=== PATIENT | female | born 1945 | race Caucasian/White ===

== ENCOUNTER 2017-06-27 04:02 | Inpatient (IN) | payer OTHER ==
[~2017-06-27] VITALS: Ht 163.8 cm; Wt 70.3 kg
[~2017-06-27 04:02] MED LIST: ALBUTEROL0.63 MG/1 INH/SOL; AMLODIPINE BESYL5 M1 PO; ATORVASTATIN CA10 M1 PO; CELEBREX200 M1 PO; COREG12.5 M1 PO; DIAZEPAM5 M1; DURAGESIC1 EAC2 TOP; LASIX40 M1 PO; LEXAPRO20 M1 PO; LISINOPRIL40 M1 PO; PERCOCET 5-3251 EACH PO; SPIRIVA18 MCG INH; SYMBICORT 16010.2 GM INH; SYNTHROID137 MCG PO
--- NOTE | 2017-06-27 10:44 | Admission Core Measures ---
Acute Coronary Syndrome (CM) ACS Core Measures Acute Coronary Syndrome Diagnosis No Congestive Heart Failure (NEW) CHF Core Measures Congestive Heart Failure Diagnosis No Cerebrovascular Accident (NEW) CVA Core Measures CVA/TIA Diagnosis No Venous Thromboembolism VTE Core [place]ctor (View Protocol) VTE Risk Factors Age>40 No Mechanical VTE Prophylaxis d/t N/A MechProphylax Ordered No VTE Pharm Prophylaxis d/t NA PharmProphylax ordered Problem List As ranked by this Provider includes Assessment & Plan 1. Unilateral primary osteoarthritis, right hip HOME MEDS Home Med List Albuterol Sulfate 0.63 MG/3 ML VIAL.NEB 1 Vial INH/HODA PRN COPD (Reported) Amlodipine Besylate 5 MG TABLET 1 TAB PO DAILY CARDIAC (Reported) Atorvastatin Calcium 10 MG TABLET 1 TAB PO DAILY CHOLESTEROL (Reported) Budesonide/Formoterol Fumarate (Symbicort 160-4.5 Mcg Inhaler) 160 MCG-4.5 MCG/ ACTUATION HFA.AER.AD 2 PUF INH BID COPD (Reported) Carvedilol (Coreg) 12.5 MG TABLET 1 TAB PO BID CARDIAC (Reported) Celecoxib (Celebrex) 200 MG CAPSULE 1 CAP PO DAILY PAIN (Reported) Escitalopram Oxalate (Lexapro) 20 MG TABLET 2 TAB PO DAILY ANXIETY (Reported) Fentanyl Citrate (Duragesic) 50 MCG/HOUR PATCH.TD72 1 PAT TOP Q3D PAIN ( Reported) Furosemide (Lasix) 20 MG TABLET 0.5 TAB PO DAILY CHF (Reported) Levothyroxine Sodium (Synthroid) 137 MCG TABLET 1 TAB PO DAILY REPLACEMENT ( Reported) Lisinopril 10 MG TABLET 1 TAB PO DAILY CARDIAC (Reported) Oxycodone HCl/Acetaminophen (Percocet 5-325 MG Tablet) 5 MG-325 MG TABLET 1 TAB PO 4 TIMES/DAY PAIN (Reported) Tiotropium [place] (Spiriva) 18 MCG CAP.W.DEV 1 CAP INH DAILY COPD (Reported)
[2017-06-27] MEDS ORDERED: ASPIRIN EC325 M2 PO (12:00)
[2017-06-27] MEDS ORDERED: MIRALAX17 G1 PO (12:00)
[2017-06-27] MEDS ORDERED: COLACE100 M1 PO (12:00)
--- NOTE | 2017-06-27 12:03 | Patient Discharge Instructions ---
Discharge Instructions General Discharge Information You were seen/treated for: Right hip pain related to unilateral primary osteoarthritis You had these procedures: Right total hip replacement Watch for these problems: Increasing pain despite the use of pain medication Increasing redness, warmth or swelling Drainage of any type from incision Inability to bear weight on operative leg Persistent nausea and vomiting Fever greater than 101.5 degrees Call Surgeon to remove: Ottoniel, Stitches Do not soak the wound: Yes No bath, but you may shower: Yes Other wound care: Please keep wound clean and dry. No ointments or lotions of any type on or near incision at any time. No exceptions. Your dressing will be changed by your nurse on the second day after your surgery. Daily dry dressing changes are recommended each day thereafter. Adaptic and gauze dressing change to R inferior knee abrasion daily. Do not soak your wound in a bath at any time until otherwise indicated by your surgeon. You may shower, please dry wound immediately after shower with a clean towel. Special Instructions: Aspirin: You are taking this medication to help prevent blood clot formation. Please take with food to protect your stomach lining. Please take as directed. Constipation: Pain medication can cause constipation. Dr. Dawson has recommended that you take Colace and miralax each day. You may discontinue this medication if you develop loose stool or diarrhea. If you wish to continue this medication, it is available over the counter. If you are unable to move your bowels after several days, if you are unable to pass gas and are developing bloating, nausea, or vomiting as a result, please contact your doctor. Diet Continue normal diet: Yes Recommended Diet: Regular Activity Full Activity/No Limits: No Activity Self Limited: Yes Pounds, do NOT lift more than: 10 Acute Coronary Syndrome Inclusion Criteria At DC or during hospital stay patient has or had the following: ACS DIAGNOSIS No Discharge Core Measures Meds if any: Prescribed or Continued at Discharge Meds if any: NOT Prescribed or Continued at Discharge Congestive Heart Failure Inclusion Criteria At DC or during hospital stay patient has or had the following: CHF DIAGNOSIS No Discharge Core Measures Meds if any: Prescribed or Continued at Discharge Meds if any: NOT Prescribed or Continued at Discharge Cerebrovascular accident Inclusion Criteria At DC or during hospital stay patient has or had the following: CVA/TIA Diagnosis No Discharge Core Measures Meds if any: Prescribed or Continued at Discharge Meds if any: NOT Prescribed or Continued at Discharge Venous thromboembolism Inclusion Criteria VTE Diagnosis No VTE Type NONE VTE Confirmed by (Test) NONE Discharge Core Measures - Per Current guidelines, there needs to be overlap - treatment for the first 5 days of Warfarin therapy. - If discharged on Warfarin prior to 5 days of - overlap therapy, the patient will need to be - assessed for post discharge needs including - *Post discharge parental anticoagulation - *Warfarin and/or parental anticoagulation education - *Follow up date to check INR post discharge At least 5 days overlap therapy as Inpatient No Meds if any: Prescribed or Continued at Discharge Note: Overlap Therapy is Warfarin and Anticoagulant Meds if any: NOT Prescribed or Continued at Discharge
--- NOTE | 2017-06-27 12:05 | Surgical Discharge Summary ---
Visit Information Visit Dates Admission Date: 06/27/17 Discharge Date: 06/30/17 History of Present Illness Chief Complaint: Right hip pain related to unilateral primary osteoarthritis Medical History Pneumonia Vaccine: 06/25/01 Surgical History Pertinent Surgical History: non-contributory Psychosocial History Who Do You Live With? Spouse Services at Home: None What is Your Primary Language? Georgian Review of Systems: See H&P Hospital Course Course Attending Physician: Maverick Dawson MD Primary Care Physician: Facundo MORSE,[facility] Course: Patient was admitted to the hospital for an elective total joint replacement. The procedure was tolerated well and patient was transferred to a general surgical floor. Diet was advanced and tolerated, and the patient voided spontaneously. The patient was evaluated and treated by physical therapy. At the time of hospital discharge, the vital signs were stable, neurovascular status was intact, and pain was controlled with the use of oral pain medications. Allergies: Coded Allergies: No Known Allergies (06/21/17) Disposition Summary Disposition Principal Diagnosis: Right hip unilateral primary osteoarthritis Additional Diagnosis: None Discharge Disposition: home health services Discharge Instructions General Discharge Information Code Status: Full Code Patient's Diet: Regular, advance as tolerated Patient's Activity: WBAT Follow-Up Instructions/Appts: Follow up with Dr. Dawson in 6 weeks from date of surgery Medications at Discharge Discharge Medications: Stop taking the following medications: Oxycodone HCl/Acetaminophen (Percocet 5-325 MG Tablet) 5 MG-325 MG TABLET ORAL 4 TIMES A DAY Continue taking these medications: Albuterol Sulfate (Albuterol Sulfate) 0.63 MG/3 ML VIAL.NEB 1 Vial Inhale Solution NEEDED Budesonide/Formoterol Fumarate (Symbicort 160-4.5 Mcg Inhaler) 160 MCG-4.5 MCG/ ACTUATION HFA.AER.AD 2 Puff Inhale through mouth TWICE DAILY Tiotropium [place] (Spiriva) 18 MCG CAP.W.DEV 1 Capsule Inhale through mouth DAILY Carvedilol (Coreg) 12.5 MG TABLET 1 Tablet ORAL TWICE DAILY Lisinopril (Lisinopril) 40 MG TABLET 1 Tablet ORAL DAILY Diazepam (Diazepam) 5 MG TABLET Furosemide (Lasix) 40 MG TABLET 1 Tablet ORAL DAILY Atorvastatin Calcium (Atorvastatin Calcium) 10 MG TABLET 1 Tablet ORAL DAILY Escitalopram Oxalate (Lexapro) 20 MG TABLET 2 Tablet ORAL DAILY Fentanyl Citrate (Duragesic) 50 MCG/HOUR PATCH.TD72 1 Patch On the skin Every 3 days Levothyroxine Sodium (Synthroid) 137 MCG TABLET 1 Tablet ORAL DAILY Amlodipine Besylate (Amlodipine Besylate) 5 MG TABLET 1 Tablet ORAL DAILY Celecoxib (Celebrex) 200 MG CAPSULE 1 Capsule ORAL DAILY Start taking the following new medications: Aspirin (Ecotrin*) 325 MG TABLET.DR 1 Tablet ORAL TWICE DAILY Qty = 60 No Refills Docusate Sodium (Colace) 100 MG CAPSULE 1 Capsule ORAL TWICE DAILY Qty = 14 No Refills Instructions: DISCONTINUE USE IF YOU DEVELOP LOOSE STOOL OR DIARRHEA Polyethylene Glycol 3350 (Miralax) 17 GRAM POWD.PACK 1 Packet ORAL DAILY Qty = 7 No Refills Instructions: dissolve in water, DISCONTINUE USE IF YOU DEVELOP LOOSE STOOL OR DIARRHEA Copies To: Facundo MORSE,[place]
--- NOTE | 2017-06-27 12:36 | RADIOLOGY REPORT ---
EXAMINATION: XR HIP, RIGHT CLINICAL INFORMATION: Right hip replacement COMPARISON: None TECHNIQUE: Two views of the right hip. FINDINGS: The femoral head prosthesis is well centered within the appropriately abducted and anteverted acetabular cup. The tip of the femoral stem is well centered in the medullary cavity of the proximal femoral diaphysis; no endosteal scalloping or periprosthetic fracture. Lateral skin nicole and postoperative drainage tube are noted. Mild soft tissue swelling and soft tissue gas of the lateral hip. IMPRESSION: The components of the right total hip arthroplasty demonstrate satisfactory position and alignment. No acute periprosthetic fracture.
[2017-06-27 13:05] VITALS: BP 118/64
--- NOTE | 2017-06-27 14:52 | PN- Orthopedic ---
See Addendum Subjective Subjective: POSTOP CHECK up with pt, +void. no nausea, no vomiting. hungry, awating meal. pain well controlled. no cp/sob. Objective Vital Signs and I&Os Vital Signs Date Time Temp Pulse Resp B/P B/P Pulse O2 O2 Flow FiO2 Mean Ox Delivery Rate 06/27 1318 95 Nasal 4.0L Cannula 06/27 1305 97.7 76 20 118/64 95 Nasal 4.0L Cannula Intake & Output 06/27 1600 06/27 0800 06/27 0000 06/26 1600 06/26 0800 06/26 0000 Intake Total Output Total Balance Patient 155 lb Weight Physical Exam: GEN- NAD CARD- S1S2 RRR PULM- +bs bl, coarse at bases ABD- soft nt EXT- RLE: hip dressing CDI, ttp at incision and anterior thigh, gross motor/ sensory intact, palp DP. BLE: calves soft nt Assessment/Plan Assessment/Plan A- POD0 sp R ROLAN, stable, with appropriate postop pain P- - reg diet as tolerated - HL - WBAT, PT, OOB - ALPS, ASA BID - prn pain meds - home meds - titrate O2, TRC, IST - DC planning Core Measures Venous Thromboembolism VTE Risk Factors Age>40 No Mechanical VTE Prophylaxis d/t N/A MechProphylax Ordered No VTE Pharm Prophylaxis d/t NA PharmProphylax ordered
--- NOTE | 2017-06-27 16:22 | Operative Report ---
Operative/Inv Procedure Report Surgery Date: 06/27/17 Name of Procedure: Right total hip replacement Pre-Operative Diagnosis: Primary right hip DJD Post-Operative Diagnosis: Same Estimated Blood Loss: 300 Surgeon/Computer Forensics Examiner: Samir MORSE,Maverick Mota Anesthesia: block Operative/Procedure Note Note: Description of Procedure: The patient was taken to the operating room and positively identified. After induction of spinal anesthesia and administration of appropriate pre-operative antibiotics, the patient was positioned supine on the operating room table and all bony prominences were well padded. After performing a surgical timeout, the right lower extremity was prepped and draped in the usual sterile fashion. A direct anterior approach was made to the right hip. The incision was carried sharply through superficial soft tissues to the level of the fascia. Meticulous hemostasis was maintained with Bovie electocautery. The fascia over the tensor fascia terrance muscle was opened sharply and the interval between the TFL and the sartorius was entered bluntly taking care to stay lateral to the lateral femoral cutaneous nerve. Retractors were placed around the femoral neck and the pericapsular fat was identified. The ascending branches of the lateral femoral circumflex vessels were identified and carefully coagulated. The pericapsular fat and anterior capsule were then resected. A napkin ring osteotomy was performed and the femoral head was removed without difficulty. Attention was then turned to the acetabulum. After appropriate placement of retractors, the acetabulum was exposed. Soft tissue was cleaned from the acetabular margin and notch. Overhanging osteophytes were removed and the teardrop was exposed. The acetabulum was then sequentially reamed to accept a 56 mm Dean Tritanium hemispherical solid shell. This was impacted into place in the appropriate position and fitted with a 36 mm Trident X3 zero degree polyethylene insert. Attention was then turned to the femur. After performing the appropriate ligament releases, the proximal femur was exposed. It was then sequentially broached to accept a size 5 Dean Accolade 2 stem. This was trialed for leg length and stability. The trial component was removed and the final component was impacted into place. The trunnion was carefully cleaned and fit with a 36 mm, +2.5 Biolox delta ceramic femoral head. The hip was reduced and put through a full range of motion and found to be stable. The articular space was then irrigated with sterile saline. The periarticular soft tissues were infilitrated with Marcaine. The fascial layer was closed with interrupted #1 vicryl suture and the skin was re-approximated with interrupted 2 -0 vicryl. The skin was closed with nicole and sterile dressings were applied. The patient was awakened and taken to the recovery room in satisfactory condition.
[2017-06-27 16:30] VITALS: BP 90/60
[2017-06-27 20:35] VITALS: BP 100/60
[2017-06-28 00:27] VITALS: BP 100/56
[2017-06-28 04:30] VITALS: BP 126/64
--- NOTE | 2017-06-28 07:45 | PN- Orthopedic ---
Subjective Subjective: Awake, alert No complaints at this time - last took pain meds at 1200 and 430am, tolerable with meds Denies nausea +void Working with PT Objective Vital Signs and I&Os Vital Signs Date Time Temp Pulse Resp B/P B/P Pulse O2 O2 Flow FiO2 Mean Ox Delivery Rate 06/28 0430 97.9 74 18 126/64 99 Nasal 2.0L Cannula 06/28 0027 98.1 76 18 100/56 99 Nasal 2.0L Cannula 06/28 0000 95 Nasal 2.0L Cannula 06/27 2110 98.4 84 20 100/60 06/27 2035 98.4 84 20 100/60 95 Nasal Cannula 06/27 1950 99 Nasal 4.0L Cannula 06/27 1630 97.8 84 20 90/60 96 Nasal Cannula 06/27 1600 95 Nasal 4.0L Cannula 06/27 1500 99 Nasal 4.0L Cannula 06/27 1453 Nasal 4.0L Cannula 06/27 1318 95 Nasal 4.0L Cannula 06/27 1305 97.7 76 20 118/64 95 Nasal 4.0L Cannula Intake & Output 06/28 0800 06/28 0000 06/27 1600 06/27 0800 06/27 0000 06/26 1600 Intake Total 1005 555 Output Total 850 1250 450 Balance -850 -245 105 Intake, IV 525 75 Intake, Oral 480 480 Output, 50 50 Drainage Output, Urine 850 1200 400 Patient 155 lb Weight Physical Exam: afebrile, vss hemovac: 50cc bloody drainage last shift General: alert and oriented times three Chest: clear anteriorly bilaterally, RRR Abd: soft, good bs Ext: warm, no edema, normosensate, 5/5 RUPERTO BLE Wound: hemovac in place - removed with a small amount of serosang drainage leaking behind it, the rest of the incision looks good, dressing changed, clean and dry without any drainage, ice pack in place Assessment/Plan Assessment/Plan 72yo female s/p R THR pod 1 PT - WBAT pain management asa 325mg po bid for dvt ppx dc planning Core Measures Venous Thromboembolism VTE Risk Factors Age>40 No Mechanical VTE Prophylaxis d/t N/A MechProphylax Ordered No VTE Pharm Prophylaxis d/t NA PharmProphylax ordered
[2017-06-28 09:10] VITALS: BP 122/64
[2017-06-28 09:19] LABS: ABSOLUTE BASOPHIL COUNT 0 /CUMM (0.0-0.2); ABSOLUTE EOSINOPHIL COUNT 0 /CUMM (0.0-0.7); ABSOLUTE GRANULOCYTE CT 10.6 /CUMM (1.4-6.5); ABSOLUTE LYMPH COUNT 1.4 /CUMM (1.2-3.4); ABSOLUTE MONOCYTE COUNT 0.7 /CUMM (0.10-0.60); BASOPHIL % 0.2 % (0.0-2.0); EOSINOPHIL % 0 % (0-5); HEMATOCRIT 23.5 % (37-47); MEAN CORPUSCULAR HGB 29.4 PG (27.0-31.0); MEAN CORPUSCULAR HGB CONC 33.5 G/DL (33.0-37.0); MEAN CORPUSCULAR VOLUME 87.7 FL (81.0-99.0); MEAN PLATELET VOLUME 7.8 FL (7.4-10.4); PLATELET COUNT 268 /CUMM (130-400); RBC DISTRIBUTION WIDTH 14.1 % (11.5-14.5); RED BLOOD CELL CT 2.67 /CUMM (4.20-5.40); WHITE BLOOD CELL COUNT 12.7 /CUMM (4.8-10.8)
[2017-06-28 10:22] LABS: GRANULOCYTE % 83.6 % (42.2-75.2)
[2017-06-28 13:02] VITALS: BP 122/66
[2017-06-28 15:56] VITALS: BP 140/70
[2017-06-28 19:31] VITALS: BP 128/56
[2017-06-29 00:07] VITALS: BP 114/60
[2017-06-29 04:19] VITALS: BP 118/60
[2017-06-29 09:27] LABS: ABSOLUTE BASOPHIL COUNT 0 /CUMM (0.0-0.2); ABSOLUTE EOSINOPHIL COUNT 0.1 /CUMM (0.0-0.7); ABSOLUTE GRANULOCYTE CT 5.4 /CUMM (1.4-6.5); ABSOLUTE LYMPH COUNT 2.1 /CUMM (1.2-3.4); ABSOLUTE MONOCYTE COUNT 0.6 /CUMM (0.10-0.60); BASOPHIL % 0.3 % (0.0-2.0); EOSINOPHIL % 1.3 % (0-5); GRANULOCYTE % 65.3 % (42.2-75.2); HEMATOCRIT 23.4 % (37-47); MEAN CORPUSCULAR HGB 29.1 PG (27.0-31.0); MEAN CORPUSCULAR HGB CONC 33.1 G/DL (33.0-37.0); MEAN PLATELET VOLUME 7.9 FL (7.4-10.4); PLATELET COUNT 260 /CUMM (130-400); RBC DISTRIBUTION WIDTH 14.1 % (11.5-14.5); RED BLOOD CELL CT 2.66 /CUMM (4.20-5.40); WHITE BLOOD CELL COUNT 8.3 /CUMM (4.8-10.8)
--- NOTE | 2017-06-29 10:39 | PN- Orthopedic ---
Subjective Subjective: Reports pain uncontrolled. She reports taking oxycodone 5 mg every 4 hours at baseline, in addition to the fentanyl patch she currently has in place. She has chronic back, shoulder, finger/joint pain at baseline. She also has baseline anemia (10.3/31.4 pre-op), and currently denies symptoms including no dizziness, no shortness of breath, no chest pains. She does not feel comfortable with discharge to home today, as she feels her pain is currently not well controlled and she is nervous about going home at this time. Objective Vital Signs and I&Os Vital Signs Date Time Temp Pulse Resp B/P B/P Pulse O2 O2 Flow FiO2 Mean Ox Delivery Rate 06/29 930 68 18 122/64 06/29 09 68 122/64 06/29 0930 68 18 122/64 06/29 0419 98.4 70 20 118/60 92 Room Air 06/29 0007 98.4 73 20 114/60 91 06/28 2133 79 128/56 06/28 1931 97.9 79 20 128/56 93 06/28 1643 95 Room Air 06/28 1556 97.6 80 20 140/70 94 06/28 1302 97.5 74 18 122/66 94 06/28 1108 95 Nasal 1.0L Cannula Intake & Output 06/29 1600 06/29 0800 06/29 0000 06/28 1600 06/28 0800 06/28 0000 Intake Total 500 269 927 8822 Output Total 7347 516 3819 1250 1250 Balance -800 -320 -1400 -750 -245 Intake, IV 300 525 Intake, Oral 500 480 200 480 Number 0 Bowel Movements Output, 100 50 Drainage Output, Urine 1016 937 9726 1150 1200 Physical Exam: General - alert & oriented x 3. no acute distress. Lungs - clear Cardiac - s1s2. reg Abdomen - soft. nontender. Extremities - right hip dressing changed by nurse this morning, as it was falling off. superficial skin tear dressing changed to her right anterior yoo with adaptic guaze / telfa / tegaderm. no exudates or surrounding erythema noted. calves soft and nontender. athrombics in place. calves soft and nontender. Current Medications: Current Medications Sig/Pat Start time Last Medication Dose Route Stop Time Status Admin Acetaminophen 1,000 MG Q6H 06/29 1030 AC N/A 1 UNIT IV 06/30 0444 Acetaminophen 1,000 MG Q6H 06/27 1800 DC 06/28 IV 06/28 1201 1108 Albuterol Sulfate 3 ML Q4P PRN 06/27 2000 AC INH Amlodipine Besylate 5 MG DAILY 06/28 1000 AC 06/29 PO 0931 Aspirin 325 MG BID 06/27 2200 AC 06/29 PO 0930 Atorvastatin Calcium 10 MG 1700 06/28 1700 AC 06/28 PO 1631 Budesonide/ 2 PUF BID 06/27 2200 AC 06/29 Formoterol Fumarate INH 0931 Carvedilol 12.5 MG BID 06/27 2200 AC 06/29 PO 0930 Diazepam 5 MG TID PRN 06/29 1030 AC PO Diphenhydramine HCl 25 MG AT BEDTIME PRN 06/29 1030 AC PO Docusate Sodium 100 MG BID 06/27 2200 AC 06/29 PO 0930 Escitalopram Oxalate 40 MG DAILY 06/28 1000 AC 06/29 PO 0930 Fentanyl Citrate 50 MCG Q3D 06/27 1330 AC 06/27 TOP 1408 Furosemide 40 MG DAILY 06/28 1000 AC 06/29 PO 0930 Hydromorphone HCl 2 MG Q4P PRN 06/27 1315 DC 06/28 PO 1557 Hydromorphone HCl 4 MG Q4P PRN 06/27 1315 DC 06/29 PO 0932 Levothyroxine Sodium 0.137 MG DAILY AC 06/28 0700 AC 06/29 PO 0533 Lisinopril 40 MG DAILY 06/28 1000 AC 06/29 PO 0931 Melatonin 5 MG AT BEDTIME 06/27 2200 AC 06/28 PO 2133 Morphine Sulfate 2 MG Q2P PRN 06/27 1315 AC 06/29 IV 0051 Ondansetron HCl 4 MG Q6P PRN 06/27 1315 AC IV Oxycodone HCl 10 MG Q4-6 PRN PRN 06/29 1030 AC PO Oxycodone HCl 20 MG Q4-6 PRN PRN 06/29 1030 AC PO Polyethylene Glycol 17 GM DAILY 06/28 1000 AC 06/29 PO 0931 Promethazine HCl 12.5 MG Q6P PRN 06/27 1315 AC IV 07/04 1159 Sodium Chloride 500 ML BOLUS ONE 06/28 1045 DC 06/28 IV 06/28 1144 1108 Tiotropium [place] 1 PUF DAILY 06/28 1000 AC 06/29 INH 0931 Results Last 48 Hours of Labs: Laboratory Tests 06/29 06/28 0700 0745 Chemistry Sodium (137 - 145 mmol/L) 139 139 Potassium (3.5 - 5.1 mmol/L) 4.6 5.2 H Chloride (98 - 107 mmol/L) 105 108 H Carbon Dioxide (22 - 30 mmol/L) 24 21 L Anion Gap (5 - 16) 10 10 BUN (7 - 17 mg/dL) 31 H 48 H Creatinine (0.5 - 1.0 mg/dL) 0.9 1.3 H Estimated GFR (>60 ml/min) > 60 40 L BUN/Creatinine Ratio (7 - 25 %) 34.4 H 36.9 H Hematology CBC w Diff NO MAN DIFF REQ NO MAN DIFF REQ WBC (4.8 - 10.8 /CUMM) 8.3 12.7 H RBC (4.20 - 5.40 /CUMM) 2.66 L 2.67 L Hgb (12.0 - 16.0 G/DL) 7.8 L 7.9 L Hct (37 - 47 %) 23.4 L 23.5 L MCV (81.0 - 99.0 FL) 88.0 87.7 MCH (27.0 - 31.0 PG) 29.1 29.4 RDW (11.5 - 14.5 %) 14.1 14.1 Plt Count (130 - 400 /CUMM) 260 268 MPV (7.4 - 10.4 FL) 7.9 7.8 Gran % (42.2 - 75.2 %) 65.3 83.6 H Lymphocytes % (20.5 - 51.1 %) 25.5 10.8 L Monocytes % (1.7 - 9.3 %) 7.6 5.4 Eosinophils % (0 - 5 %) 1.3 0 Basophils % (0.0 - 2.0 %) 0.3 0.2 Absolute Granulocytes (1.4 - 6.5 /CUMM) 5.4 10.6 H Absolute Lymphocytes (1.2 - 3.4 /CUMM) 2.1 1.4 Absolute Monocytes (0.10 - 0.60 /CUMM) 0.6 0.7 H Absolute Eosinophils (0.0 - 0.7 /CUMM) 0.1 0 Absolute Basophils (0.0 - 0.2 /CUMM) 0 0 PUBS MCHC (33.0 - 37.0 G/DL) 33.1 33.5 Assessment/Plan Assessment/Plan This 72 year old female with hx copd, chf, htn, hld, hypothyroidism, depression, is now POD#2 s/p R THR, acute eli-operative blood loss anemia currently asymptomatic (with underlying vitamin b and iron def anemia reportedly), currently reporting pain uncontrolled tolerating regular diet d/c oral dilaudid. try oxycodone 10-20 mg every 4-6 hours as needed for pain. add iv tylenol atc add valium 5 mg tid prn spasm/pain (this is a home med prn for her) continue current fentanyl patch right hip dressing and right anterior yoo skin tear dressing (adaptic / telfa / tegaderm) changed continue PT continue asa 325 mg bid - dvt ppx f/u am labs. add type & screen in case her anemia becomes symptomatic anticipate discharge to home tomorrow, POD#3 if labs stable and pain controlled will d/w Core Measures Venous Thromboembolism VTE Risk Factors Age>40 No Mechanical VTE Prophylaxis d/t N/A MechProphylax Ordered No VTE Pharm Prophylaxis d/t NA PharmProphylax ordered
[2017-06-29] MEDS ORDERED: OXYCODONE HCL10 M2 PO (10:44)
[2017-06-29 15:06] VITALS: BP 110/60
[2017-06-29 20:00] VITALS: BP 112/54
[2017-06-30 00:32] VITALS: BP 98/60
[2017-06-30 04:21] VITALS: BP 96/56
[2017-06-30 07:53] VITALS: BP 100/60
[2017-06-30 08:25] LABS: ABSOLUTE BASOPHIL COUNT 0 /CUMM (0.0-0.2); ABSOLUTE EOSINOPHIL COUNT 0.2 /CUMM (0.0-0.7); ABSOLUTE GRANULOCYTE CT 4.1 /CUMM (1.4-6.5); ABSOLUTE LYMPH COUNT 2.3 /CUMM (1.2-3.4); ABSOLUTE MONOCYTE COUNT 0.7 /CUMM (0.10-0.60); BASOPHIL % 0.5 % (0.0-2.0); EOSINOPHIL % 3.1 % (0-5); GRANULOCYTE % 55.6 % (42.2-75.2); MEAN CORPUSCULAR HGB 29.7 PG (27.0-31.0); MEAN CORPUSCULAR HGB CONC 33.9 G/DL (33.0-37.0); MEAN CORPUSCULAR VOLUME 87.8 FL (81.0-99.0); MEAN PLATELET VOLUME 7.5 FL (7.4-10.4); PLATELET COUNT 262 /CUMM (130-400); RBC DISTRIBUTION WIDTH 14.2 % (11.5-14.5); RED BLOOD CELL CT 2.63 /CUMM (4.20-5.40); WHITE BLOOD CELL COUNT 7.3 /CUMM (4.8-10.8)
--- NOTE | 2017-06-30 10:58 | PN- Orthopedic ---
Subjective Subjective: Patient has no major complaints today. Pain is reasonably controlled with the oxycodone. She is ambulating well with physical therapy and progressing as expected. She is tolerating regular regular diet and has been cleared by PT for home discharge today. Objective Vital Signs and I&Os Vital Signs Date Time Temp Pulse Resp B/P B/P Pulse O2 O2 Flow FiO2 Mean Ox Delivery Rate 06/30 1014 98.1 61 20 96/56 / 0753 98.7 66 19 100/60 96 06/30 0421 98.1 61 20 96/56 93 Room Air 06/30 0032 97.9 69 20 98/60 93 Room Air 06/29 2145 98.5 72 20 108/60 / 2000 98.5 72 20 112/54 91 Room Air 06/29 1506 97.7 72 20 110/60 92 Room Air 06/29 1103 95 Room Air Intake & Output 06/30 1600 06/30 0800 06/30 0000 06/29 1600 06/29 0800 06/29 0000 Intake Total 680 600 600 500 480 Output Total 900 582 207 6210 800 Balance -220 -300 -350 -800 -320 Intake, IV 200 100 Intake, Oral 480 500 600 500 480 Output, Urine 900 736 200 7338 800 Physical Exam: Gen.: Patient is awake and alert. No acute distress. Cardiac: Regular Pulmonary: Lungs are clear bilaterally. Extremities: The right hip incision is clean, dry, and intact with nicole in place. There is also one suture in place. There is moderate amount of ecchymosis around the incision, which likely represents a small hematoma, but it is stable. Strength of dorsiflexion and plantar flexion are 4 out of 5. Lower summary sensation is intact. No Tenderness is appreciated. Alps and teds are in place. Results Last 48 Hours of Labs: Laboratory Tests 06/30 06/29 0738 0700 Chemistry Sodium (137 - 145 mmol/L) 137 139 Potassium (3.5 - 5.1 mmol/L) 4.5 4.6 Chloride (98 - 107 mmol/L) 104 105 Carbon Dioxide (22 - 30 mmol/L) 25 24 Anion Gap (5 - 16) 8 10 BUN (7 - 17 mg/dL) 26 H 31 H Creatinine (0.5 - 1.0 mg/dL) 0.9 0.9 Estimated GFR (>60 ml/min) > 60 > 60 BUN/Creatinine Ratio (7 - 25 %) 28.9 H 34.4 H Hematology CBC w Diff NO MAN DIFF REQ NO MAN DIFF REQ WBC (4.8 - 10.8 /CUMM) 7.3 8.3 RBC (4.20 - 5.40 /CUMM) 2.63 L 2.66 L Hgb (12.0 - 16.0 G/DL) 7.8 L 7.8 L Hct (37 - 47 %) 23.0 L 23.4 L MCV (81.0 - 99.0 FL) 87.8 88.0 MCH (27.0 - 31.0 PG) 29.7 29.1 RDW (11.5 - 14.5 %) 14.2 14.1 Plt Count (130 - 400 /CUMM) 262 260 MPV (7.4 - 10.4 FL) 7.5 7.9 Gran % (42.2 - 75.2 %) 55.6 65.3 Lymphocytes % (20.5 - 51.1 %) 31.6 25.5 Monocytes % (1.7 - 9.3 %) 9.2 7.6 Eosinophils % (0 - 5 %) 3.1 1.3 Basophils % (0.0 - 2.0 %) 0.5 0.3 Absolute Granulocytes (1.4 - 6.5 /CUMM) 4.1 5.4 Absolute Lymphocytes (1.2 - 3.4 /CUMM) 2.3 2.1 Absolute Monocytes (0.10 - 0.60 /CUMM) 0.7 H 0.6 Absolute Eosinophils (0.0 - 0.7 /CUMM) 0.2 0.1 Absolute Basophils (0.0 - 0.2 /CUMM) 0 0 PUBS MCHC (33.0 - 37.0 G/DL) 33.9 33.1 Assessment/Plan Assessment/Plan is a 72-year-old female who is now postoperative day #3 status post right total hip arthroplasty. She experienced perioperative blood loss anemia, which is stable 2 days now. Pain is better controlled on oxycodone. Plan: -Plan for discharge home today on oxycodone, aspirin, Colace, and MiraLAX with home health services, including physical therapy and nursing care. -Dry dressing change to right hip once daily. Adaptic and gauze dressing can be applied to the right knee abrasion. -Plan for staple removal in 2 weeks and follow-up with Dr. Dawson in 6 weeks. Core Measures Venous Thromboembolism VTE Risk Factors Age>40 No Mechanical VTE Prophylaxis d/t N/A MechProphylax Ordered No VTE Pharm Prophylaxis d/t NA PharmProphylax ordered
[2017-06-30 11:26] VITALS: BP 112/60
== END 2017-06-30 15:03 | disposition home health service (06) | DRG 470 ==
LOC: SDA 04:02 → ENRESERV 11:54 → ENTRNSPT 12:42 → EDTRNSPT 12:48 → EDTRNSPTSTS 12:48 → 2NA 13:03 → CMPTRNSPT 13:12 → ENPENDDIS 06-30 11:10 → 2NA 06-30 15:03
PROVIDERS: Nurse Practitioner; Physician Assistant; Physician Assistant Surgical
PROC: 0SR904A Replacement of Right Hip Joint with Ceramic on Polyethylene Synthetic Substitute, Uncemented, Open Approach (ICD-10-PCS; principal; 2017-06-27)
DX: M16.11 Unilateral primary osteoarthritis, right hip (principal); D51.9 Vitamin B12 deficiency anemia, unspecified; I50.22 Chronic systolic (congestive) heart failure; I11.0 Hypertensive heart disease with heart failure; D62 Acute posthemorrhagic anemia; J44.9 Chronic obstructive pulmonary disease, unspecified; E03.9 Hypothyroidism, unspecified
CPT/HCPCS: 2NAP; 36415; 73502-RT; 82436; 86920; 86922; 97110-GO; 97116-GO; 97161-GP; 97530-GO; J0131; J0690; J0735; J1100; J2405; J2550; J3490; J7040